=== PATIENT | male | born 1965 | race American Indian/Alaskan Native ===

== ENCOUNTER 2018-09-29 11:59 | Emergency (ER) | payer MEDICAID, OTHER ==
[2018-09-29 12:08] VITALS: RESP 18; TEMP 98.2; O2SAT 98
[2018-09-29] MEDS ORDERED: Metoprolol Succinate 50 mg XL Tab PO STA (12:20)
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
[2018-09-29 12:46] LABS: ALB/GLOB RATIO 1.2 (1.1-1.8); ALBUMIN 4.4 g/dL (3.0-4.8); ALT/SGPT 28 U/L (7-56); AST/SGOT 34 U/L (17-59); BLOOD UREA NITROGEN 14 mg/dL (7-21); CALCIUM 9.5 mg/dL (8.4-10.5); GFR NON-AFRICAN AMERICAN > 60
[2018-09-29 12:56] LABS: BASO # 0.07 K/mm3 (0.0-2.0); EOS # 1.3 (0.0-0.7); EOS % 18.5 % (1.5-5.0); GRAN # 1.92 (1.4-6.5); HEMOGLOBIN 14.7 g/dL (14.0-18.0); LYMPH # 3.2 (1.2-3.4); LYMPH % 45.3 % (22.0-35.0); MEAN CELL VOLUME 95.4 fl (80.0-105.0); MEAN CORPUSCULAR HEMOGLOBIN 32.3 pg (25.0-35.0); MEAN CORPUSCULAR HGB CONC 33.9 g/dl (31.0-37.0); MONO # 0.6 (0.1-0.6); MONO % 8.2 % (1.0-6.0); RBC 4.55 10^6/uL (3.5-6.1); RED CELL DISTRIBUTION WIDTH 12.9 % (11.5-14.5); WHITE BLOOD COUNT 7.1 10^3/uL (4.5-11.0)
[2018-09-29 12:58] LABS: TROPONIN I < 0.01 ng/mL
--- NOTE | 2018-09-29 13:30 | RAD ---
Date of service: 09/29/2018 HISTORY: productive cough r/o PNA COMPARISON: No prior. FINDINGS: LUNGS: The lungs are well inflated and clear. PLEURA: No pleural effusions or pneumothorax. CARDIOVASCULAR: The heart is normal in size. No aortic atherosclerotic calcification present. OSSEOUS STRUCTURES: Within normal limits for the patient's age. VISUALIZED UPPER ABDOMEN: Normal. OTHER FINDINGS: None. IMPRESSION: No active pulmonary disease.
[2018-09-29 13:50] VITALS: BP 169/99; PULSE 89
[2018-09-29 14:00] LABS: URINE BILIRUBIN NEGATIVE (NEGATIVE); URINE BLOOD TRACE-INTACT (NEGATIVE); URINE GLUCOSE (UA) NEGATIVE (NEGATIVE); URINE LEUKOCYTE ESTERASE NEGATIVE Leu/uL (NEGATIVE); URINE PROTEIN NEGATIVE mg/dL (<30 mg/dL); URINE UROBILINOGEN 0.2 E.U./dL (<1 E.U./dL)
[2018-09-29 14:03] LABS: URINE APPEARANCE CLEAR (CLEAR); URINE COLOR STRAW (YELLOW)
[2018-09-29 14:08] LABS: URINE BACTERIA FEW (NEG); URINE WBC 0 - 2 /hpf (0-6)
--- NOTE | 2018-09-29 18:02 | CARD ---
APPROVED REPORT Date of service: 09/29/2018 EKG Measurement Heart [id number] <Conclusion> Normal sinus rhythm Moderate voltage criteria for LVH, may be normal variant Borderline ECG
== END 2018-09-29 14:06 | disposition home or self-care (01) ==
LOC: ED 11:59
DX: I10 Essential (primary) hypertension (principal); R07.9 Chest pain, unspecified; J32.9 Chronic sinusitis, unspecified